=== PATIENT | female | born 1955 | race Caucasian/White ===

== ENCOUNTER 2021-02-03 08:05 | Inpatient (IN) | payer OTHER, MEDICARE ==
[2021-02-03 09:53] VITALS: BMI 22.3
[2021-02-03] MEDS ORDERED: Morphine 2 MG/ML VIAL SLOW IVP PRN (10:20)
[2021-02-03] MEDS ORDERED: Ondansetron PF 4 MG/2 ML Vial IVP PRN (10:30)
[2021-02-03] MEDS ORDERED: Ondansetron ODT 4 MG TAB SL PRN (10:30)
[2021-02-03] MEDS ORDERED: Dextrose 50% Abboject 50 ML SYRINGE SLOW IVP PRN (11:20)
[2021-02-03] MEDS ORDERED: Dextrose 5% in Water 1,000 ML IV PRN (11:20)
[2021-02-03 13:28] LABS: #Eosinphils 0.1 thou/uL (0.0-0.7); #Lymphocytes 1.1 thou/uL (1.20-3.40); #Monocytes 0.5 thou/uL (0.11-0.59); #Neutrophils 2.7 thou/uL (1.40-6.50); %Basophils 0.9 % (0.0-1.0); %Eosinophils 1.7 % (0.0-10.0); %Lymphocytes 25.3 % (21.0-51.0); Hemoglobin 12.8 g/dL (12.0-16.0); Mean Corpuscular HGB CONC 31.3 g/dL (32.0-36.0); Mean Corpuscular Hemoglobin 34.3 pg (27.0-31.0); RBC Distribution Width 15.4 % (11.5-14.5); Red Blood Cell (RBC) Count 3.73 mill/uL (4.20-5.40); White Blood Cell (WBC) Count 4.5 thou/uL (4.8-10.8)
[2021-02-03 13:36] LABS: PTT 34.5 sec (22.9-36.1); Prothrombin Time 13.1 sec (12.0-14.7)
[2021-02-03 13:43] LABS: ALT (SGPT) 11 U/L (8-55); AST (SGOT) 15 U/L (5-34); Albumin 3.8 g/dL (3.4-4.8); Alkaline Phosphatase 69 U/L (40-110); Anion Gap 16 mmol/L (10-20); Anisocytosis SLIGHT = 6-15 cells (100X) (0-5/hpf); BUN (Urea Nitrogen) 31 mg/dL (9.8-20.1); Bilirubin, Total 0.6 mg/dL (0.2-1.2); Calc. Creatinine Clearance 9 mL/min (70-130); Calcium 9.6 mg/dL (7.8-10.44); Carbon Dioxide 26 mmol/L (23-31); Chloride 103 mmol/L (98-107); Globulin 2.5 g/dL (2.4-3.5); Glucose 72 mg/dL (80-115); Hypochromia SLIGHT = 6-15 cells (100X) (0-5/hpf); MDiff Complete? YES; Macrocytosis MODERATE=16-30 cells (100X) (0-5/hpf); Magnesium 2.2 mg/dL (1.6-2.6); Mean Platelet Volume 10.1 fL (7.4-10.4); Phosphorus 3.9 mg/dL (2.3-4.7); Platelet Count 110 thou/uL (130-400); Platelet Morphology Comment Appears Decreased; Polychromasia SLIGHT = 2-3 cells (100X) (0-2/hpf); Potassium 4.8 mmol/L (3.5-5.1); Protein, Total 6.3 g/dL (5.8-8.1); Sodium 140 mmol/L (136-145); Tear Drops SLIGHT = 2-5 cells (100X) (0-1/hpf)
[2021-02-03] MEDS ORDERED: CEFAZOLIN 2 GM in Premix Bag 1 BAG IVPB SCH (16:15)
[2021-02-03] MEDS: Scopolamine 1.5 mg/72 hour Patch TD SCH (16:52)
[2021-02-03] MEDS: Sevelamer Carbonate 800 MG TAB PO SCH (17:38)
[2021-02-03] MEDS: Ondansetron ODT 4 MG TAB PO PRN (17:38)
[2021-02-03] MEDS: Ferrous Gluconate 324 MG TAB PO SCH (20:37)
[2021-02-03] MEDS ORDERED: Famotidine/PF 20 mg/2ml Vial SLOW IVP SCH (21:00)
[2021-02-04] MEDS ORDERED: traMADol HCl 50 MG TAB PO PRN (03:44)
[2021-02-04] MEDS ORDERED: Morphine 2 MG/ML VIAL SLOW IVP SCH (04:00)
[2021-02-04 04:58] LABS: #Basophils 0.1 thou/uL (0.0-0.2); #Eosinphils 0.2 thou/uL (0.0-0.7); #Lymphocytes 1.5 thou/uL (1.20-3.40); #Monocytes 0.8 thou/uL (0.11-0.59); #Neutrophils 3.5 thou/uL (1.40-6.50); %Basophils 0.8 % (0.0-1.0); %Eosinophils 3.1 % (0.0-10.0); %Lymphocytes 24.9 % (21.0-51.0); %Monocytes 13.7 % (0.0-10.0); %Neutrophils 57.4 % (42.0-75.0); Hemoglobin 13.4 g/dL (12.0-16.0); Mean Corpuscular HGB CONC 32.7 g/dL (32.0-36.0); Mean Platelet Volume 10.6 fL (7.4-10.4); Platelet Count 109 thou/uL (130-400); RBC Distribution Width 15.6 % (11.5-14.5); Red Blood Cell (RBC) Count 3.72 mill/uL (4.20-5.40); White Blood Cell (WBC) Count 6.1 thou/uL (4.8-10.8)
[2021-02-04 05:16] LABS: Phosphorus 4.4 mg/dL (2.3-4.7)
[2021-02-04 05:20] LABS: Anion Gap 19 mmol/L (10-20); BUN (Urea Nitrogen) 38 mg/dL (9.8-20.1); Calc. Creatinine Clearance 8 mL/min (70-130); Calcium 9.4 mg/dL (7.8-10.44); Carbon Dioxide 22 mmol/L (23-31); Chloride 99 mmol/L (98-107); Glucose 70 mg/dL (80-115); Magnesium 2.4 mg/dL (1.6-2.6); Potassium 4.2 mmol/L (3.5-5.1); Sodium 136 mmol/L (136-145)
[2021-02-04] MEDS: Cyclobenzaprine 10 MG TAB PO PRN (05:38)
[2021-02-04] MEDS: Acetaminophen 325 MG TAB PO SCH ×3 (05:38→18:58)
[2021-02-04] MEDS: Amiodarone 200 MG TAB PO SCH (05:39)
[2021-02-04] MEDS: Amlodipine 5 MG TAB PO SCH (05:40)
[2021-02-04] MEDS: Levothyroxine Sodium 112 MCG TAB PO SCH (07:19)
[2021-02-04] MEDS ORDERED: Fentanyl 100 MCG/2 ML VIAL ONE (08:47)
[2021-02-04] MEDS ORDERED: Midazolam HCl 2 mg/2 ml Vial ONE (08:47)
[2021-02-04] MEDS ORDERED: Ketamine 50 MG/ML (10ML VIAL) ONE (08:48)
[2021-02-04] MEDS ORDERED: Bempedoic Acid/Ezetimibe [Nexlizet 180-10 Mg Tablet] PO SCH (09:00)
[2021-02-04] MEDS ORDERED: Lidocaine 1% PF 5 ML VIAL ONE (09:05)
[2021-02-04] MEDS ORDERED: Ondansetron PF 4 MG/2 ML Vial ONE (09:05)
[2021-02-04] MEDS ORDERED: PHENYLEPHRINE-NS 100 MCG/ML 10 ML SYRINGE ONE (09:05)
[2021-02-04] MEDS ORDERED: Dexamethasone 20 MG/5 ML VIAL ONE (09:05)
[2021-02-04] MEDS ORDERED: Ondansetron HCl/PF 4 MG/2 ML Vial IVP PRN (10:15)
[2021-02-04] MEDS ORDERED: PACU-Morphine 4MG/ML VIAL SLOW IVP PRN (10:15)
[2021-02-04] MEDS ORDERED: Morphine Sulfate 2 MG/ML SYRINGE SLOW IVP PRN (10:15)
[2021-02-04] MEDS ORDERED: Promethazine HCl 25 MG/ML VIAL IVPB PRN (10:15)
[2021-02-04] MEDS ORDERED: Promethazine HCl 25 MG/ML VIAL IM PRN (10:15)
[2021-02-04] MEDS ORDERED: Morphine 2 MG/ML VIAL ONE ×5 (10:42→11:44)
[2021-02-04] MEDS: Sevelamer Carbonate 800 MG TAB PO SCH ×2 (17:10→18:39)
[2021-02-04] MEDS: PARoxetine 20 MG TAB PO SCH (17:10)
[2021-02-04] MEDS: Cholecalciferol 1,000 UNITS (25 MCG) TAB PO SCH (17:10)
[2021-02-04] MEDS: Ascorbic Acid 500 mg Chewable Tablet PO SCH (17:10)
[2021-02-04] MEDS: Midodrine HCl 5 MG TAB PO SCH ×2 (17:10→21:51)
[2021-02-04] MEDS: Zinc Sulfate 220 MG CAP PO SCH (17:11)
[2021-02-04] MEDS: CEFAZOLIN 2 GM in Premix Bag 1 BAG IVPB SCH ×2 (17:11→21:40)
[2021-02-04] MEDS: Ferrous Gluconate 324 MG TAB PO SCH (21:39)
[2021-02-05] MEDS: Acetaminophen 325 MG TAB PO SCH ×4 (00:22→17:15)
[2021-02-05] MEDS: Cyclobenzaprine 10 MG TAB PO PRN ×2 (06:20→22:11)
[2021-02-05] MEDS: Levothyroxine Sodium 112 MCG TAB PO SCH (06:21)
[2021-02-05 06:23] LABS: #Eosinphils 0.1 thou/uL (0.0-0.7); #Monocytes 0.7 thou/uL (0.11-0.59); #Neutrophils 4.9 thou/uL (1.40-6.50); %Basophils 0.3 % (0.0-1.0); %Eosinophils 0.8 % (0.0-10.0); %Lymphocytes 15.3 % (21.0-51.0); %Monocytes 10.8 % (0.0-10.0); %Neutrophils 72.7 % (42.0-75.0); Mean Corpuscular HGB CONC 32.6 g/dL (32.0-36.0); Mean Corpuscular Hemoglobin 35.5 pg (27.0-31.0); Platelet Count 100 thou/uL (130-400); RBC Distribution Width 15.4 % (11.5-14.5); Red Blood Cell (RBC) Count 3.11 mill/uL (4.20-5.40); White Blood Cell (WBC) Count 6.8 thou/uL (4.8-10.8)
[2021-02-05 06:31] LABS: Anion Gap 15 mmol/L (10-20); BUN (Urea Nitrogen) 20 mg/dL (9.8-20.1); Calc. Creatinine Clearance 12 mL/min (70-130); Calcium 8.7 mg/dL (7.8-10.44); Carbon Dioxide 29 mmol/L (23-31); Chloride 98 mmol/L (98-107); Glucose 79 mg/dL (80-115); Magnesium 2.1 mg/dL (1.6-2.6); Phosphorus 4.3 mg/dL (2.3-4.7); Sodium 138 mmol/L (136-145)
[2021-02-05] MEDS ORDERED: CEFAZOLIN 2 GM in Premix Bag 1 BAG IVPB SCH (08:00)
[2021-02-05] MEDS: Ascorbic Acid 500 mg Chewable Tablet PO SCH (08:39)
[2021-02-05] MEDS: Cholecalciferol 1,000 UNITS (25 MCG) TAB PO SCH (08:39)
[2021-02-05] MEDS: Amlodipine 5 MG TAB PO SCH (08:39)
[2021-02-05] MEDS: Amiodarone 200 MG TAB PO SCH (08:39)
[2021-02-05] MEDS: Sevelamer Carbonate 800 MG TAB PO SCH ×3 (08:40→17:15)
[2021-02-05] MEDS: PARoxetine 20 MG TAB PO SCH (08:40)
[2021-02-05] MEDS: Zinc Sulfate 220 MG CAP PO SCH (08:41)
[2021-02-05] MEDS: Morphine 2 MG/ML VIAL SLOW IVP PRN ×2 (09:30→14:22)
[2021-02-05] MEDS: Ondansetron ODT 4 MG TAB PO PRN (20:10)
[2021-02-05] MEDS: Ferrous Gluconate 324 MG TAB PO SCH (22:11)
[2021-02-06] MEDS: Acetaminophen 325 MG TAB PO SCH ×5 (00:25→23:31)
[2021-02-06] MEDS: Levothyroxine Sodium 112 MCG TAB PO SCH (06:33)
[2021-02-06] MEDS: Ondansetron ODT 4 MG TAB PO PRN (09:23)
[2021-02-06] MEDS: Ascorbic Acid 500 mg Chewable Tablet PO SCH (09:24)
[2021-02-06] MEDS: Sevelamer Carbonate 800 MG TAB PO SCH ×3 (09:24→17:38)
[2021-02-06] MEDS: Amlodipine 5 MG TAB PO SCH (09:24)
[2021-02-06] MEDS: Zinc Sulfate 220 MG CAP PO SCH (09:25)
[2021-02-06] MEDS: PARoxetine 20 MG TAB PO SCH (09:25)
[2021-02-06] MEDS: Cholecalciferol 1,000 UNITS (25 MCG) TAB PO SCH (09:25)
[2021-02-06] MEDS: Amiodarone 200 MG TAB PO SCH (09:26)
[2021-02-06] MEDS: Cyclobenzaprine 10 MG TAB PO PRN (13:00)
[2021-02-06] MEDS ORDERED: Ibuprofen 200 MG TAB PO PRN (13:04)
[2021-02-06] MEDS: Scopolamine 1.5 mg/72 hour Patch TD SCH (15:14)
[2021-02-06] MEDS: Ferrous Gluconate 324 MG TAB PO SCH (20:39)
[2021-02-06] MEDS: Gabapentin 100 MG CAP PO SCH (20:39)
[2021-02-07] MEDS: Acetaminophen 325 MG TAB PO SCH ×4 (05:22→23:28)
[2021-02-07] MEDS: Levothyroxine Sodium 112 MCG TAB PO SCH (06:53)
[2021-02-07] MEDS: Midodrine HCl 5 MG TAB PO SCH ×2 (10:08→20:49)
[2021-02-07] MEDS: Sevelamer Carbonate 800 MG TAB PO SCH ×3 (12:45→18:06)
[2021-02-07] MEDS: Zinc Sulfate 220 MG CAP PO SCH (12:56)
[2021-02-07] MEDS: Amiodarone 200 MG TAB PO SCH (12:56)
[2021-02-07] MEDS: PARoxetine 20 MG TAB PO SCH (12:56)
[2021-02-07] MEDS: Amlodipine 5 MG TAB PO SCH (12:57)
[2021-02-07] MEDS: Gabapentin 100 MG CAP PO SCH ×2 (13:00→20:48)
[2021-02-07] MEDS: Ascorbic Acid 500 mg Chewable Tablet PO SCH (13:00)
[2021-02-07] MEDS: Cholecalciferol 1,000 UNITS (25 MCG) TAB PO SCH (13:00)
[2021-02-07] MEDS: Cyclobenzaprine 10 MG TAB PO PRN (18:10)
[2021-02-07] MEDS: Ferrous Gluconate 324 MG TAB PO SCH (20:48)
[2021-02-08 05:37] LABS: Anion Gap 15 mmol/L (10-20); BUN (Urea Nitrogen) 26 mg/dL (9.8-20.1); Calc. Creatinine Clearance 12 mL/min (70-130); Calcium 8.5 mg/dL (7.8-10.44); Carbon Dioxide 27 mmol/L (23-31); Chloride 99 mmol/L (98-107); Glucose 73 mg/dL (80-115); Magnesium 1.9 mg/dL (1.6-2.6); Phosphorus 3.5 mg/dL (2.3-4.7); Potassium 3.8 mmol/L (3.5-5.1); Sodium 137 mmol/L (136-145)
[2021-02-08] MEDS: Acetaminophen 325 MG TAB PO SCH ×2 (05:42→12:00)
[2021-02-08 05:50] LABS: Hemoglobin 9.3 g/dL (12.0-16.0); Mean Corpuscular HGB CONC 32.3 g/dL (32.0-36.0); Mean Corpuscular Hemoglobin 34.4 pg (27.0-31.0); Mean Platelet Volume 10.1 fL (7.4-10.4); Platelet Count 92 thou/uL (130-400); RBC Distribution Width 14.6 % (11.5-14.5); Red Blood Cell (RBC) Count 2.71 mill/uL (4.20-5.40)
[2021-02-08] MEDS: Levothyroxine Sodium 112 MCG TAB PO SCH (06:09)
[2021-02-08 06:18] LABS: Band 13 % (5-11); Eosinophils 4 % (0-10); Lymphocytes 25 % (21-51); MDiff Complete? YES; Monocytes 3 % (0-10); Neutrophil 55 % (42-75); Platelet Morphology Comment Appears Decreased
[2021-02-08] MEDS: Cholecalciferol 1,000 UNITS (25 MCG) TAB PO SCH (08:05)
[2021-02-08] MEDS: Amlodipine 5 MG TAB PO SCH (08:05)
[2021-02-08] MEDS: Ascorbic Acid 500 mg Chewable Tablet PO SCH (08:05)
[2021-02-08] MEDS: Sevelamer Carbonate 800 MG TAB PO SCH ×2 (08:05→12:00)
[2021-02-08] MEDS: Zinc Sulfate 220 MG CAP PO SCH (08:06)
[2021-02-08] MEDS: Amiodarone 200 MG TAB PO SCH (08:06)
[2021-02-08] MEDS: Gabapentin 100 MG CAP PO SCH (08:07)
[2021-02-08] MEDS: PARoxetine 20 MG TAB PO SCH (08:07)
[2021-02-08] MEDS ORDERED: Polyethylene Glycol 3350 17 GM Packet PO SCH (09:00)
[2021-02-08] MEDS ORDERED: Senokot S 8.6-50 MG TAB PO SCH (09:00)
[2021-02-08] MEDS ORDERED: Heparin 5,000 UNITS/ML VIAL SC SCH (09:00)
[2021-02-08] MEDS ORDERED: Midodrine HCl 5 MG TAB PO SCH (16:30)
[2021-02-08 16:34] VITALS: BP 92/51; TEMP 97.8
[2021-02-09] MEDS ORDERED: Clopidogrel Bisulfate 75 MG TAB PO SCH (09:00)
[2021-02-10] MEDS ORDERED: Aspirin 81 mg Enteric Coated Tablet PO SCH (09:00)
== END 2021-02-08 16:47 | disposition swing bed (61) | DRG 480 ==
LOC: SURG A 09:24 → 2NO 15:24 → SURG A 02-04 12:22
PROVIDERS: ADMIT Surgery; ATTEND Surgery
PROC: 0QH704Z Insertion of Internal Fixation Device into Left Upper Femur, Open Approach (ICD-10-PCS; principal; 2021-02-04)
PROC: 5A1D70Z Performance of Urinary Filtration, Intermittent, Less than 6 Hours Per Day (ICD-10-PCS; 2021-02-04)
DX: S72.142A Displaced intertrochanteric fracture of left femur, initial encounter for closed fracture (principal); N18.6 End stage renal disease; I50.22 Chronic systolic (congestive) heart failure; I13.2 Hypertensive heart and chronic kidney disease with heart failure and with stage 5 chronic kidney disease, or end stage renal disease; Z20.822 Contact with and (suspected) exposure to COVID-19; I25.10 Atherosclerotic heart disease of native coronary artery without angina pectoris; D63.1 Anemia in chronic kidney disease; E78.5 Hyperlipidemia, unspecified; E89.0 Postprocedural hypothyroidism; F41.9 Anxiety disorder, unspecified; I73.9 Peripheral vascular disease, unspecified; W18.30XA Fall on same level, unspecified, initial encounter; Y92.512 Supermarket, store or market as the place of occurrence of the external cause; Z99.2 Dependence on renal dialysis; Z95.810 Presence of automatic (implantable) cardiac defibrillator; Z79.01 Long term (current) use of anticoagulants; Z95.2 Presence of prosthetic heart valve; Z90.49 Acquired absence of other specified parts of digestive tract; Z95.5 Presence of coronary angioplasty implant and graft
CPT/HCPCS: 36415; 70450; 76000; 80048; 80053; 83735; 84100; 85025; 85610; 85730; 86850; 86900; 86901; 90935; 93306; C1713; G0257; J0690; J1100; J1644; J2250; J2270; J2405; J3010; Q0162; S0028

== ENCOUNTER 2022-08-03 09:57 | Outpatient (CLI) | payer MEDICARE, OTHER | END 2022-08-03 09:58 | disposition home or self-care (01) | LOC: RAD 09:57 | PROVIDERS: ATTEND Hospitalist | DX: R07.9 Chest pain, unspecified (principal); I51.7 Cardiomegaly; I31.39 Other pericardial effusion (noninflammatory); I38 Endocarditis, valve unspecified | CPT/HCPCS: 93306 ==

== ENCOUNTER 2022-08-05 22:56 | Inpatient (IN) | payer MEDICARE, OTHER ==
[2022-08-05] MEDS ORDERED: Ondansetron PF 4 MG/2 ML Vial ONE (23:31)
[2022-08-06] MEDS ORDERED: NOREPINEPHRINE 8 MG/250 ML-D5W 250 ML ONE (00:15)
[2022-08-06 00:26] LABS: #Lymphocytes 1.1 thou/uL (1.20-3.40); #Monocytes 1.4 thou/uL (0.11-0.59); #Neutrophils 7.6 thou/uL (1.40-6.50); %Basophils 0.2 % (0.0-1.0); %Eosinophils 0.2 % (0.0-10.0); %Lymphocytes 10.8 % (21.0-51.0); %Monocytes 13.5 % (0.0-10.0); %Neutrophils 75.3 % (42.0-75.0); Hemoglobin 11.5 g/dL (12.0-16.0); Mean Corpuscular Hemoglobin 32.4 pg (27.0-31.0); Mean Platelet Volume 10.7 fL (7.4-10.4); Platelet Count 145 10x3/uL (130-400); Red Blood Cell (RBC) Count 3.54 mill/uL (4.20-5.40); White Blood Cell (WBC) Count 10.1 10x3/uL (4.8-10.8)
[2022-08-06 00:42] LABS: SARS-CoV-2 NAA Rapid Test Not Detected (NotDetected)
[2022-08-06 00:47] LABS: ALT (SGPT) 13 U/L (8-55); AST (SGOT) 18 U/L (5-34); Albumin 3.1 g/dL (3.4-4.8); Alkaline Phosphatase 69 U/L (40-110); Anion Gap 15 mmol/L (10-20); BUN (Urea Nitrogen) 32 mg/dL (9.8-20.1); Bilirubin, Total 0.7 mg/dL (0.2-1.2); Calc. Creatinine Clearance 0 mL/min (70-130); Calcium 9.8 mg/dL (7.8-10.44); Carbon Dioxide 26 mmol/L (23-31); Chloride 96 mmol/L (98-107); Estimated GFR 11; Globulin 2.8 g/dL (2.4-3.5); Glucose 92 mg/dL (80-115); Lipase 30 U/L (8-78); Potassium 4.3 mmol/L (3.5-5.1); Protein, Total 5.9 g/dL (5.8-8.1); Sodium 133 mmol/L (136-145)
[2022-08-06 01:03] LABS: Actual Bicarbonate (HCO3a) 29.2 mEq/L (22-28); Analyzer IN Cardio ER; Calcium, Ionized (arterial) 1.23 mmol/L (1.12-1.30); Carboxyhemoglobin (COHb) 0.6 gm% (0.0-3.0); Hemoglobin (Hb) 11.3 g/dL (12.0-16.0); O2 Tension (PaO2), arterial 83.1 mmHg (> 80.0); Potassium - ABG Lab 4.16 mmol/L (3.70-5.30); pH, Arterial 7.26 (7.35-7.45)
[2022-08-06 01:05] LABS: Puncture Site LRA
[2022-08-06] MEDS ORDERED: EPINEPHrine 1 MG/10 ML Abboject SYRINGE ONE (01:13)
[2022-08-06] MEDS ORDERED: DOBUTamine 500 mg/250 ml 250 ML ONE (01:30)
[2022-08-06] MEDS ORDERED: Heparin 10,000 UNITS/ 10 ML VIAL ONE (01:38)
[2022-08-06] MEDS ORDERED: Heparin 25,000 units/D5W 0 ML ONE (01:38)
[2022-08-06 01:51] LABS: CKMB 2.2 ng/mL (0-6.6)
[2022-08-06 02:04] LABS: INR-International Normal Ratio 0.9; Prothrombin Time 12.1 sec (12.0-14.7)
[2022-08-06 02:05] LABS: PTT 39.6 sec (22.9-36.1)
[2022-08-06 02:22] LABS: Actual Bicarbonate (HCO3v) 28 mEq/L (22-28); Base Excess 0.5 mEq/L (-2.0 to +3.0); Chloride (VBG) 96 mmol/L (98-106); Hemoglobin (Hb) 10.9 g/dL (11.7-16.1); Potassium (VBG) 4.03 mmol/L (3.70-5.30); Sodium 131.3 mmol/L (133-146); pH (venous) 7.29 (7.32-7.43)
[2022-08-06] MEDS ORDERED: Amiodarone 150 MG/3 ML VIAL ONE (02:28)
[2022-08-06] MEDS ORDERED: Rocuronium Bromide 10 MG/ML (10ML VIAL) ONE (02:30)
[2022-08-06] MEDS ORDERED: Propofol 1,000 MG/100 ML VIAL IV ONE (02:37)
[2022-08-06 03:09] LABS: Actual Bicarbonate (HCO3a) 23.5 mEq/L (22-28); Base Excess (BEa) 1.1 mEq/L (-2.0 to +3.0); CO2 Tension 30.3 mmHg (35.0-45.0); Carboxyhemoglobin (COHb) 0.6 gm% (0.0-3.0); Hemoglobin (Hb) 10.9 g/dL (12.0-16.0); O2 Tension (PaO2), arterial 89.6 mmHg (> 80.0); Potassium - ABG Lab 3.79 mmol/L (3.70-5.30); pH, Arterial 7.51 (7.35-7.45)
[2022-08-06 03:10] LABS: ALV-art Gradient 229.025 mmHg (0-20); Puncture Site LRA
[2022-08-06] MEDS ORDERED: Acetaminophen 325 MG TAB PO PRN (03:14)
[2022-08-06] MEDS ORDERED: Ondansetron PF 4 MG/2 ML Vial IVP PRN (03:14)
[2022-08-06] MEDS ORDERED: Ondansetron ODT 4 MG TAB PO PRN (03:14)
[2022-08-06] MEDS ORDERED: Acetaminophen 650 MG Suppository PR PRN (03:14)
[2022-08-06] MEDS ORDERED: Ventilator Sedation Protocol 1 EACH FS SCH (03:15)
[2022-08-06] MEDS ORDERED: Midazolam HCl 2 mg/2 ml Vial SLOW IVP PRN (03:52)
[2022-08-06] MEDS ORDERED: DISCONTINUE PREVIOUS NARCOTIC PAIN MEDICATIONS AND BENZODIAZEPINES FS SCH (04:00)
[2022-08-06] MEDS ORDERED: Propofol BOLUS 1,000 MG/100 ML VIAL IV PRN (04:00)
[2022-08-06 04:04] LABS: Troponin I 0.409 ng/mL (< 0.028)
[2022-08-06 05:59] VITALS: BMI 17.9
[2022-08-06] MEDS: Morphine 4 MG/ML VIAL SLOW IVP PRN (06:21)
[2022-08-06 06:31] LABS: Hemoglobin 10.9 g/dL (12.0-16.0); Mean Corpuscular HGB CONC 32.3 g/dL (32.0-36.0); Mean Corpuscular Hemoglobin 33.3 pg (27.0-31.0); Mean Platelet Volume 11.1 fL (7.4-10.4); Platelet Count 161 10x3/uL (130-400); RBC Distribution Width 12.9 % (11.5-14.5); Red Blood Cell (RBC) Count 3.27 mill/uL (4.20-5.40); White Blood Cell (WBC) Count 11.5 10x3/uL (4.8-10.8)
[2022-08-06 06:46] LABS: Anion Gap 18 mmol/L (10-20); BUN (Urea Nitrogen) 36 mg/dL (9.8-20.1); Calc. Creatinine Clearance 9 mL/min (70-130); Calcium 9.8 mg/dL (7.8-10.44); Carbon Dioxide 26 mmol/L (23-31); Chloride 94 mmol/L (98-107); Estimated GFR 10; Glucose 104 mg/dL (80-115); Potassium 4.2 mmol/L (3.5-5.1); Sodium 134 mmol/L (136-145)
[2022-08-06 06:52] LABS: Band 10 % (5-11); Lymphocytes 7 % (21-51); MDiff Complete? YES; Monocytes 10 % (0-10); Neutrophil 73 % (42-75)
[2022-08-06 07:47] LABS: Troponin I 0.736 ng/mL (< 0.028)
[2022-08-06] MEDS ORDERED: Amiodarone 150 MG in Dextrose 5% in Water 100 ML IVPB SCH (08:00)
[2022-08-06] MEDS ORDERED: Oseltamivir 75 MG CAP PO SCH (08:16)
[2022-08-06] MEDS: Heparin 5,000 UNITS/ML VIAL SC SCH ×3 (09:04→20:21)
[2022-08-06] MEDS: Oseltamivir 75 MG CAP PO SCH (09:04)
[2022-08-06] MEDS: Cefepime 1 GM in Sodium Chloride 0.9% 100 ML IVPB SCH (10:15)
[2022-08-06] MEDS: Amiodarone 450 MG in Dextrose 5% in Water 250 ML IVPB SCH (11:17)
[2022-08-07] MEDS: Propofol 1,000 MG/100 ML VIAL IV PRN ×2 (00:18→19:43)
[2022-08-07] MEDS: Amiodarone 450 MG in Dextrose 5% in Water 250 ML IVPB SCH ×2 (00:18→12:39)
[2022-08-07] MEDS: Morphine 4 MG/ML VIAL SLOW IVP PRN (01:38)
[2022-08-07 04:15] LABS: #Monocytes 0.9 thou/uL (0.11-0.59); #Neutrophils 7.8 thou/uL (1.40-6.50); %Basophils 0.2 % (0.0-1.0); %Eosinophils 0.3 % (0.0-10.0); %Lymphocytes 10.4 % (21.0-51.0); %Monocytes 9.5 % (0.0-10.0); %Neutrophils 79.6 % (42.0-75.0); Hemoglobin 9.8 g/dL (12.0-16.0); Mean Corpuscular HGB CONC 32.5 g/dL (32.0-36.0); Mean Corpuscular Hemoglobin 32.7 pg (27.0-31.0); Mean Platelet Volume 11.5 fL (7.4-10.4); Platelet Count 126 10x3/uL (130-400); RBC Distribution Width 12.9 % (11.5-14.5); Red Blood Cell (RBC) Count 2.98 mill/uL (4.20-5.40); White Blood Cell (WBC) Count 9.8 10x3/uL (4.8-10.8)
[2022-08-07 04:28] LABS: Anion Gap 16 mmol/L (10-20); BUN (Urea Nitrogen) 46 mg/dL (9.8-20.1); Calc. Creatinine Clearance 7 mL/min (70-130); Calcium 9.2 mg/dL (7.8-10.44); Carbon Dioxide 26 mmol/L (23-31); Chloride 94 mmol/L (98-107); Estimated GFR 8; Glucose 99 mg/dL (80-115); Potassium 3.9 mmol/L (3.5-5.1); Sodium 132 mmol/L (136-145)
[2022-08-07 07:32] LABS: Actual Bicarbonate (HCO3a) 31.9 mEq/L (22-28); Base Excess (BEa) 9.8 mEq/L (-2.0 to +3.0); CO2 Tension 33.7 mmHg (35.0-45.0); Carboxyhemoglobin (COHb) 0.2 gm% (0.0-3.0); Hemoglobin (Hb) 10.5 g/dL (12.0-16.0); O2 Tension (PaO2), arterial 115.1 mmHg (> 80.0); pH, Arterial 7.59 (7.35-7.45)
[2022-08-07 07:34] LABS: ALV-art Gradient 127.975 mmHg (0-20); Puncture Site LRA
[2022-08-07] MEDS ORDERED: EPOETIN ALFA-EPBX (ESRD) 10,000 UNIT/ML VIAL SC SCH (07:45)
[2022-08-07] MEDS: Heparin 5,000 UNITS/ML VIAL SC SCH ×3 (08:20→20:44)
[2022-08-07] MEDS: Oseltamivir 75 MG CAP PO SCH (08:21)
[2022-08-07] MEDS: Pantoprazole 40 MG VIAL IVP SCH (08:21)
[2022-08-07] MEDS: Cefepime 1 GM in Sodium Chloride 0.9% 100 ML IVPB SCH (08:34)
[2022-08-08] MEDS: NOREPINEPHRINE 8 MG/250 ML-D5W 250 ML IVPB PRN ×2 (00:19→14:21)
[2022-08-08 02:38] VITALS: BP 97/61
[2022-08-08 03:52] LABS: #Lymphocytes 0.8 thou/uL (1.20-3.40); #Neutrophils 10.4 thou/uL (1.40-6.50); %Basophils 0.2 % (0.0-1.0); %Eosinophils 0.4 % (0.0-10.0); %Lymphocytes 6.9 % (21.0-51.0); %Monocytes 7.8 % (0.0-10.0); %Neutrophils 84.8 % (42.0-75.0); Hemoglobin 10.7 g/dL (12.0-16.0); Mean Corpuscular HGB CONC 32.8 g/dL (32.0-36.0); Mean Platelet Volume 11.3 fL (7.4-10.4); Platelet Count 131 10x3/uL (130-400); RBC Distribution Width 13.2 % (11.5-14.5); Red Blood Cell (RBC) Count 3.26 mill/uL (4.20-5.40); White Blood Cell (WBC) Count 12.3 10x3/uL (4.8-10.8)
[2022-08-08 04:15] LABS: Anion Gap 16 mmol/L (10-20); BUN (Urea Nitrogen) 55 mg/dL (9.8-20.1); Calc. Creatinine Clearance 6 mL/min (70-130); Calcium 9.7 mg/dL (7.8-10.44); Carbon Dioxide 27 mmol/L (23-31); Chloride 93 mmol/L (98-107); Estimated GFR 7; Glucose 95 mg/dL (80-115); Potassium 4.1 mmol/L (3.5-5.1); Sodium 132 mmol/L (136-145)
[2022-08-08] MEDS: Amiodarone 450 MG in Dextrose 5% in Water 250 ML IVPB SCH (06:46)
[2022-08-08] MEDS: Propofol 1,000 MG/100 ML VIAL IV PRN (06:47)
[2022-08-08] MEDS: Heparin 5,000 UNITS/ML VIAL SC SCH (08:02)
[2022-08-08] MEDS: Cefepime 1 GM in Sodium Chloride 0.9% 100 ML IVPB SCH (08:02)
[2022-08-08] MEDS: Pantoprazole 40 MG VIAL IVP SCH (08:03)
[2022-08-08 08:21] LABS: Actual Bicarbonate (HCO3a) 26.8 mEq/L (22-28); CO2 Tension 42.2 mmHg (35.0-45.0); Calcium, Ionized (arterial) 1.28 mmol/L (1.12-1.30); Hemoglobin (Hb) 12.6 g/dL (12.0-16.0); O2 Tension (PaO2), arterial 63.1 mmHg (> 80.0); Potassium - ABG Lab 4.32 mmol/L (3.70-5.30); pH, Arterial 7.42 (7.35-7.45)
[2022-08-08 08:25] LABS: Puncture Site LRA
[2022-08-08] MEDS ORDERED: Aspirin 81 mg Enteric Coated Tablet PO SCH (10:00)
[2022-08-08 12:32] LABS: Phosphorus 2.2 mg/dL (2.3-4.7)
[2022-08-08] MEDS ORDERED: Amiodarone 450 MG, Admixture Fee 1 EACH in Dextrose 5% in Water 250 ML IVPB SCH (13:15)
[2022-08-08] MEDS ORDERED: Digoxin 0.5 MG/2 ML AMP SLOW IVP SCH ×2 (13:30→14:15)
[2022-08-08] MEDS ORDERED: Diltiazem HCl 125 MG, Admixture Fee 1 EACH in Sodium Chloride 0.9% 100 ML IVPB SCH (14:30)
[2022-08-08 18:27] VITALS: TEMP 97.8
[2022-08-08] MEDS ORDERED: Amiodarone 150 MG in Dextrose 5% in Water 100 ML IVPB SCH (18:45)
[2022-08-08] MEDS ORDERED: EPINEPHrine 1 MG/10 ML Abboject SYRINGE ONE (19:07)
[2022-08-08] MEDS ORDERED: Sodium Bicarb 50 MEQ/50 ML Abboject 8.4% SYRINGE ONE (19:07)
[2022-08-08] MEDS ORDERED: Magnesium 5 GM/10 ML Abboject SYRINGE ONE (19:07)
[2022-08-09] MEDS ORDERED: Aspirin 81 mg Enteric Coated Tablet PO SCH (09:00)
[2022-08-09] MEDS ORDERED: Oseltamivir 6 MG/ML ORAL SUSP PO SCH (09:30)
== END 2022-08-08 19:39 | disposition expired | DRG 871 ==
LOC: ERS 22:56 → CCU 08-06 02:38
PROVIDERS: ADMIT Family Medicine; ATTEND Family Medicine
PROC: 5A1945Z Respiratory Ventilation, 24-96 Consecutive Hours (ICD-10-PCS; principal; 2022-08-06)
PROC: 3E03329 Introduction of Other Anti-infective into Peripheral Vein, Percutaneous Approach (ICD-10-PCS; 2022-08-06)
PROC: 5A12012 Performance of Cardiac Output, Single, Manual (ICD-10-PCS; 2022-08-06)
PROC: 3E033XZ Introduction of Vasopressor into Peripheral Vein, Percutaneous Approach (ICD-10-PCS; 2022-08-06)
PROC: 4B02XTZ Measurement of Cardiac Defibrillator, External Approach (ICD-10-PCS; 2022-08-06)
PROC: 0D9670Z Drainage of Stomach with Drainage Device, Via Natural or Artificial Opening (ICD-10-PCS; 2022-08-06)
PROC: 0BH17EZ Insertion of Endotracheal Airway into Trachea, Via Natural or Artificial Opening (ICD-10-PCS; 2022-08-06)
PROC: 06HY33Z Insertion of Infusion Device into Lower Vein, Percutaneous Approach (ICD-10-PCS; 2022-08-06)
PROC: 5A12012 Performance of Cardiac Output, Single, Manual (ICD-10-PCS; 2022-08-08)
PROC: 5A2204Z Restoration of Cardiac Rhythm, Single (ICD-10-PCS; 2022-08-08)
PROC: 5A1D70Z Performance of Urinary Filtration, Intermittent, Less than 6 Hours Per Day (ICD-10-PCS; 2022-08-08)
DX: A41.9 Sepsis, unspecified organism (principal); R65.21 Severe sepsis with septic shock; Z20.822 Contact with and (suspected) exposure to COVID-19; J10.1 Influenza due to other identified influenza virus with other respiratory manifestations; I50.23 Acute on chronic systolic (congestive) heart failure; N18.6 End stage renal disease; J96.21 Acute and chronic respiratory failure with hypoxia; I47.20 Ventricular tachycardia, unspecified; I42.0 Dilated cardiomyopathy; I13.2 Hypertensive heart and chronic kidney disease with heart failure and with stage 5 chronic kidney disease, or end stage renal disease; E87.3 Alkalosis; E87.1 Hypo-osmolality and hyponatremia; I49.01 Ventricular fibrillation; E03.9 Hypothyroidism, unspecified; E78.5 Hyperlipidemia, unspecified; D63.1 Anemia in chronic kidney disease; D69.6 Thrombocytopenia, unspecified; I48.0 Paroxysmal atrial fibrillation; R57.0 Cardiogenic shock; I25.10 Atherosclerotic heart disease of native coronary artery without angina pectoris; I46.2 Cardiac arrest due to underlying cardiac condition; Z95.1 Presence of aortocoronary bypass graft; Z78.1 Physical restraint status; Z95.810 Presence of automatic (implantable) cardiac defibrillator; Z88.4 Allergy status to anesthetic agent; Z88.5 Allergy status to narcotic agent; Z79.899 Other long term (current) drug therapy; Z79.82 Long term (current) use of aspirin; Z79.890 Hormone replacement therapy; Z90.710 Acquired absence of both cervix and uterus; Z90.49 Acquired absence of other specified parts of digestive tract; Z99.2 Dependence on renal dialysis
CPT/HCPCS: 36415; 36416; 36600; 70450; 71045; 80048; 82553; 82805; 83605; 83690; 83735; 83880; 84100; 84484; 85025; 85610; 85730; 87040; 93005; 94002; 94003; C9113; J0171; J0282; J0692; J1160; J1250; J1644; J2270; J2405; J2704; J3475; J3490; J7070; Q5105